=== PATIENT | female | born 1980 | race Caucasian/White ===

== ENCOUNTER 2018-04-25 10:49 | Inpatient (IN) | payer BC ==
[~2018-04-25 10:49] MED LIST: OXYTOCIN 30 UNITS/LR 500 ML BAG IV
[2018-04-25] MEDS ORDERED: METHYLERGONOVINE 0.2 MG INJ IM ×2 (11:00→14:00)
[2018-04-25] MEDS ORDERED: MISOPROSTOL 200 MCG TAB PR ×2 (11:00→14:00)
[2018-04-25] MEDS ORDERED: OXYTOCIN 30 UNITS/LR 500 ML IV ×2 (11:00→14:00)
[2018-04-25] MEDS ORDERED: CARBOPROST 250 MCG INJ IM ×2 (11:00→14:00)
[2018-04-25] MEDS: LACTATED RINGER'S 1,000 ML IV (12:11)
[2018-04-25 12:21] LABS: ADD MAN DIFF? NO
[2018-04-25 12:26] LABS: WHITE BLOOD COUNT 7.6 10^3/ul (4.8-10.8)
[2018-04-25 12:26] LABS: BASOPHILS % 0.3 % (0.0-2.0); EOSINOPHILS % 0.3 % (0.0-7.0); HEMATOCRIT 34.4 % (37.0-47.0); HEMOGLOBIN 11.4 g/dl (12.0-16.0); LYMPHOCYTES # 1.9 10^3/ul (0.8-2.9); LYMPHOCYTES % 24.7 % (15.0-51.0); MEAN CORPUSCULAR HEMOGLOBIN 29.8 pg (29.0-33.0); MEAN CORPUSCULAR HGB CONC 33.1 g/dl (32.0-37.0); MEAN CORPUSCULAR VOLUME 90.1 fl (82.0-101.0); MEAN PLATELET VOLUME 10.8 fl (7.4-10.4); MONOCYTE # 0.6 10^3/ul (0.3-0.9); MONOCYTES % 7.9 % (0.0-11.0); NEUTROPHILS % 66.4 % (39.0-77.0); PLATELET COUNT 206 10^3/UL (140-415); RED BLOOD COUNT 3.82 10^6/ul (4.20-5.40)
[2018-04-25 12:46] LABS: INR 1.01; PROTIME 13.4 Sec (11.9-14.9)
[2018-04-25 12:47] LABS: PARTIAL THROMBOPLASTIN TIME 30.3 Sec (23.0-35.0)
[2018-04-25] MEDS ORDERED: KETOROLAC 30 MG INJ IV (13:00)
[2018-04-25] MEDS ORDERED: ALBUTEROL 0.083% (NEB) 2.5 MG/3 ML AMP HHN (13:00)
[2018-04-25] MEDS ORDERED: HYDROmorphONE 1 MG/5 ML IV SYRINGE IV ×3 (13:00)
[2018-04-25] MEDS ORDERED: ONDANSETRON 4 MG INJ IV ×2 (13:00)
[2018-04-25] MEDS ORDERED: HYDROmorphONE 0.5 MG/0.5 ML SYG IV ×2 (13:00)
[2018-04-25] MEDS ORDERED: NALOXONE (0.4 MG/ML) INJ IV (13:00)
[2018-04-25] MEDS ORDERED: FENTAnyl 50 MCG/ML VIAL IV ×3 (13:00)
[2018-04-25] MEDS ORDERED: METOCLOPRAMIDE 10 MG INJ IV (13:00)
[2018-04-25] MEDS ORDERED: DIPHENHYDRAMINE 50 MG INJ IV ×2 (13:00)
[2018-04-25] MEDS ORDERED: PHENYLephrine (100 MCG/ML) 5ML SYG ×3 (13:09→13:51)
[2018-04-25 13:14] LABS: HEPATITIS B SURFACE ANTIGEN NEGATIVE (NEGATIVE)
[2018-04-25] MEDS ORDERED: EPHEDrine 25 MG/5 ML SYG (13:26)
[2018-04-25] MEDS ORDERED: morphine SULFATE/PF (10 MG/10 ML) INJ (13:47)
[2018-04-25] MEDS ORDERED: OXYCODONE/ACETAMINOPHEN (5/325) TAB PO ×2 (14:00)
[2018-04-25] MEDS ORDERED: NACL 0.9% 3 ML SYG IV (14:00)
[2018-04-25] MEDS: CEFAZOLIN 2 GM/50 ML (PMX) 50 ML IVPB ×3 (14:00→22:14)
[2018-04-25] MEDS ORDERED: LANOLIN HPA 1 PKT TOP (14:00)
[2018-04-25] MEDS: OXYTOCIN 30 UNITS/LR 500 ML IV ×2 (14:55→18:49)
[2018-04-25] MEDS: KETOROLAC 30 MG INJ IV ×2 (15:27→23:35)
[2018-04-25 15:37] LABS: RAPID PLASMA REAGIN NONREACTIVE (NR)
[2018-04-25] MEDS: SENNA/DOCUSATE NA (8.6MG/50MG) TAB PO (20:47)
[2018-04-26 04:31] LABS: RHOGAM PROFILE 1 1
[2018-04-26] MEDS: CEFAZOLIN 2 GM/50 ML (PMX) 50 ML IVPB ×2 (05:32→13:30)
[2018-04-26] MEDS: LACTATED RINGER'S 1,000 ML IV (05:32)
[2018-04-26] MEDS: KETOROLAC 30 MG INJ IV (05:32)
[2018-04-26 07:29] LABS: ADD MAN DIFF? NO
[2018-04-26 07:34] LABS: BASOPHILS % 0.2 % (0.0-2.0); EOSINOPHILS % 0.2 % (0.0-7.0); HEMATOCRIT 30.6 % (37.0-47.0); HEMOGLOBIN 10.1 g/dl (12.0-16.0); LYMPHOCYTES # 1.3 10^3/ul (0.8-2.9); LYMPHOCYTES % 10.6 % (15.0-51.0); MEAN CORPUSCULAR HEMOGLOBIN 30.1 pg (29.0-33.0); MEAN CORPUSCULAR VOLUME 91.3 fl (82.0-101.0); MEAN PLATELET VOLUME 10.7 fl (7.4-10.4); MONOCYTE # 1.1 10^3/ul (0.3-0.9); MONOCYTES % 8.6 % (0.0-11.0); NEUTROPHIL # 9.8 10^3/ul (1.6-7.5); PLATELET COUNT 194 10^3/UL (140-415); RED BLOOD COUNT 3.35 10^6/ul (4.20-5.40)
[2018-04-26 07:34] LABS: WHITE BLOOD COUNT 12.3 10^3/ul (4.8-10.8)
[2018-04-26] MEDS: SENNA/DOCUSATE NA (8.6MG/50MG) TAB PO ×2 (10:09→21:49)
[2018-04-26] MEDS: IBUPROFEN 600 MG TAB PO ×2 (13:29→18:09)
[2018-04-27] MEDS: LACTATED RINGER'S 1,000 ML IV (01:30)
[2018-04-27] MEDS: IBUPROFEN 600 MG TAB PO ×5 (05:35→23:36)
[2018-04-27] MEDS: SENNA/DOCUSATE NA (8.6MG/50MG) TAB PO ×2 (09:41→21:24)
[2018-04-27] MEDS: FERROUS SULFATE (EC) 325 MG TAB PO ×2 (09:41→21:24)
[2018-04-28] MEDS: IBUPROFEN 600 MG TAB PO ×2 (05:55→11:43)
[2018-04-28] MEDS: SENNA/DOCUSATE NA (8.6MG/50MG) TAB PO (09:13)
[2018-04-28] MEDS: FERROUS SULFATE (EC) 325 MG TAB PO (09:13)
== END 2018-04-28 13:12 | disposition home or self-care (01) | DRG 788 ==
LOC: L-D 10:49 → PP1 17:09
PROVIDERS: Obstetrics & Gynecology
PROC: 10D00Z1 Extraction of Products of Conception, Low, Open Approach (ICD-10-PCS; principal; 2018-04-26)
PROC: 0UB90ZZ Excision of Uterus, Open Approach (ICD-10-PCS; 2018-04-26)
DX: O66.0 Obstructed labor due to shoulder dystocia (principal); O36.63X0 Maternal care for excessive fetal growth, third trimester, not applicable or unspecified; Z3A.39 39 weeks gestation of pregnancy; Z37.0 Single live birth
CPT/HCPCS: 76815; 85025; 85610; 85730; 86592; 86850; 86885; 86900; 86901; 87340; 88305; 99464

== ENCOUNTER 2018-07-13 21:10 | Emergency (ER) | payer BC | END 2018-07-14 00:30 | disposition home or self-care (01) | LOC: FTE 21:10 | DX: N61.0 Mastitis without abscess (principal) | CPT/HCPCS: 99283 ==